=== PATIENT | female | born 1965 | race Caucasian/White ===

== ENCOUNTER 2016-07-10 11:34 | Inpatient (IN) | payer MEDICARE, BC ==
--- NOTE | ~2016-07-10 | CN ---
Consultation Report [facility] [address] [place]. [address] NAME: ALONSO MCFARLAND : 63 STATUS : ADM IN [facility]#: [id number] AGE: 51 ADM/REG DATE : 07/10/16 MR#: [id number] REPORT SERV DATE: 07/11/16 DICTATED BY: FRANCISCO SANON DATE: 07/11/16 REPORT STATUS : Draft TRANSCRIBED BY: MODCely DATE: 07/11/16 NEPHROLOGY CONSULT DATE OF CONSULTATION: 07/11/2016 REASON FOR CONSULT: Acute kidney injury. HISTORY OF PRESENT ILLNESS: Ms. Mcfarland is a 51-year-old white female with type 1 diabetes mellitus since the age of 6 that is complicated by neuropathy, retinopathy, and microalbuminuria. A1c is 10.2%. Creatinine in May was 1.1. She was admitted to [facility] on 07/07/2016 with a right foot wound, at which time, she was placed on vancomycin and Zosyn. Her creatinine has been 1 to 1.1 since admission. She was found to have an MRSA bacteremia during her workup. She was also found to have an occluded right SFA by ultrasound at [facility]. MRI showed no definite abscess and she is status post I and D of right foot on 07/07/2016. Yesterday, here at [facility], creatinine was 0.96. This morning, she was scheduled for arteriogram of the right leg for further evaluation of right SFA occlusion. Her creatinine was 1.74 and repeated at 2.11. Therefore, her arteriography was canceled. Interestingly, she has been on daily Mobic for approximately one year and is chronically on HANNY inhibitor. She has had diarrhea for the last several days as she has not been taking her usual home medications. PAST MEDICAL HISTORY: 1. Type 1 diabetes mellitus with retinopathy, neuropathy, microalbuminuria, and A1c 10.2% on HANNY inhibitor. 2. Rheumatoid arthritis with chronic pain and fibromyalgia. 3. Hyperlipidemia. 4. Recent SFA occlusion, right leg by ultrasound. 5. Recent MRSA bacteremia, on antibiotics. 6. Recent right foot wound. MEDICATIONS: Include Lipitor 20 mg h.s., Lovenox, Lexapro 10 mg daily, lisinopril 20 mg daily, Claritin, Protonix, Lyrica 200 mg daily, and vancomycin 750 mg q.12 hours. Prior to admission to [facility], she was also taking meloxicam 15 mg per day and Lantus 22 units daily. FAMILY HISTORY: No ESRD. SOCIAL HISTORY: Smokes one to two packs of cigarettes per day for several years. She is , lives in [place], [place], and disabled. Consultation Report [facility] [id number] [place]. [address] NAME: ALONSO MCFARLAND : 63 STATUS : ADM IN PAT#: [id number] AGE: 51 ADM/REG DATE : 07/10/16 MR#: [id number] REPORT SERV DATE: 07/11/16 DICTATED BY: FRANCISCO SANON DATE: 07/11/16 REPORT STATUS : Draft TRANSCRIBED BY: JOSHUA DATE: 07/11/16 REVIEW OF SYSTEMS: Please see HPI for pertinent details. Most recently, has had problems with the right foot wound prompting admission. She does have chronic neuropathy and retinopathy. PHYSICAL EXAMINATION: VITAL SIGNS: Temperature 97.9, pulse 86, respirations 20, blood pressure 189/81, and 95% saturation on 2 liters per nasal cannula. GENERAL: Middle-aged white female. Awake, alert, oriented, and cooperative with the exam. She is in no distress in her hospital bed. NEURO: Grossly nonfocal. HEENT: Sclerae are without icterus. Conjunctivae are not injected. Fundi are not examined. NECK: No JVD. LUNGS: Bilateral rhonchi without dyspnea or tachypnea on O2 per nasal cannula. HEART: Regular rate and rhythm without rub. ABDOMEN: Soft, nontender, and nondistended. Bowel sounds are present throughout without rebound, guarding, or peritoneal signs. EXTREMITIES: She has 1+ pitting bilateral lower extremity edema. Right foot is wrapped. Bandages are clean, dry, and intact. Wound not examined by me. No Sun catheter in place. No active gout appreciated. Mood and affect are appropriate. LABORATORY DATA: Sodium 134, potassium 4.1, bicarb 24, BUN 20, creatinine 2.1, GFR 26 mL/minute, calcium 8.4, and albumin 2.8. Vancomycin 11.2. White count 16.2, hemoglobin 11.8, platelets 294,000, and 4% eosinophils on the differential. INR 1.2. ASSESSMENT AND PLAN: Ms. Mcfarland is a 51-year-old white female with acute kidney injury in the setting of peripheral vascular disease with suspected right superficial femoral artery occlusion by ultrasound; leukocytosis; type 1 diabetes mellitus with neuropathy, retinopathy, right foot wound; microalbuminuria; methicillin-resistant Staphylococcus aureus bacteremia; chronic tobacco abuse; and hypertension. The reason for her acute kidney injury is undetermined, but likely multifactorial related to medication effect, acute tubular necrosis, interstitial nephritis, infection-related glomerulonephritis, renal artery stenosis ? Hold HANNY inhibitor and NSAIDs. Continue gentle IV fluid hydration. Check urinalysis, renal ultrasound, and Doppler renal artery ultrasound. Supportive care. Watch labs. No plans for renal biopsy at this time. Vancomycin level is within normal limits at this time. Hopefully, renal function will recover without the need for dialysis. We will follow closely with you. Family updated in room. All questions answered. We will follow closely. YOHAN/JOSHUA Francisco Consultation Report [address] [address] NAME: ALONSO MCFARLAND : 63 STATUS : ADM IN [facility]#: [id number] AGE: 51 ADM/REG DATE : 07/10/16 MR#: [id number] REPORT SERV DATE: 07/11/16 DICTATED BY: FRANCISCO SANON DATE: 07/11/16 REPORT STATUS : Draft TRANSCRIBED BY: JOSHUA DATE: 07/11/16 Rachel Sanon / [id number] CC: Dyllan Mckinley M.D.
--- NOTE | ~2016-07-10 | CN ---
Consultation Report [facility] [address] [place]. [address] NAME: ALONSO MARTÍNEZ : 63 STATUS : ADM IN [facility]#: [id number] AGE: 51 ADM/REG DATE : 07/10/16 MR#: [id number] REPORT SERV DATE: 07/12/16 DICTATED BY: ELY PRECIADO DATE: 07/11/16 REPORT STATUS : Draft TRANSCRIBED BY: MODL DATE: 07/11/16 INFECTIOUS DISEASE CONSULTATION DATE OF CONSULTATION: 07/11/2016 REASON FOR CONSULTATION: MRSA sepsis. HISTORY OF PRESENT ILLNESS: This is a 51-year-old female with past medical history notable for long-standing diabetes along with history of rheumatoid arthritis. The patient states about two weeks prior to her 07/07/2016 hospital admission at [facility], she noticed some discomfort in her right foot, particularly in the heel area, as if there was a "rock" in it. About a week prior to admission, she developed some fevers and then on the day prior to admission, she had spontaneous drainage from the right heel. For this reason, she was seen in the [facility] Emergency Department on 07/07/2016 when she had a fever of 103 and a white blood cell count of 19.4, and hemoglobin A1c of 10.2. Blood cultures were obtained and she was started on broad-spectrum antibiotics with vancomycin and Zosyn. She underwent evaluation by surgery and I and D of a right heel abscess was done. That operative note is reviewed and describes that once the overlying skin and callus had been removed, there was a large cavity in the foot that tunneled more deeply and higher up into the ankle area and there was a large amount of fibrinous exudate and gangrenous tissue that include subcutaneous fat, muscle, and fascia. This was debrided off the bone and the calcaneus and a large plug of tissue measuring 2 x 2 x 1 cm was removed from the cavity. The patient was felt to be in need of vascular surgery evaluation and was transferred here on 07/10/2016. Her blood cultures from admission there have returned positive for MRSA. At the time of her transfer, her renal function was normal for her with a creatinine of 0.96. Today, her creatinine has increased to 2.11. She also continues to have persistent leukocytosis with white blood cell count today of 16.2 thousand. She has been afebrile here except for one low-grade fever of 100. The patient has been evaluated by Nephrology and multiple possibilities are being considered for the etiology of her acute kidney injury. The patient has also been seen by Dr. Plata and an arteriogram was initially scheduled for today but canceled because of the worsening renal function. The patient had a transthoracic echocardiogram done at [facility] on 07/08/2016 which was felt to just shows some mild aortic valve sclerosis, normal LV function, and no evidence of cardiac vegetations. In addition, the patient had the MRI of the right ankle and forefoot on 07/08/2016, which showed no evidence of osteomyelitis. PAST MEDICAL HISTORY: As outlined above. In addition, she has a history of fibromyalgia and chronic pain syndrome, bilateral shoulder pain due to adhesive capsulitis, microscopic colitis, hyperlipidemia, pyelonephritis, and a melanoma on the right fifth toe. She has had hysterectomy, multiple right foot surgeries and cataract surgery. ALLERGIES: CYMBALTA CAUSES DIARRHEA AND VOMITING, UNCERTAIN REACTION TO CEPHALEXIN. PRESENT MEDICATIONS: In addition to vancomycin and Zosyn include Lyrica, Protonix, Claritin, Consultation Report [address] [address] NAME: ALONSO MARTÍNEZ : 63 STATUS : ADM IN [facility]#: [id number] AGE: 51 ADM/REG DATE : 07/10/16 MR#: [id number] REPORT SERV DATE: 07/12/16 DICTATED BY: ELY PRECIADO DATE: 07/11/16 REPORT STATUS : Draft TRANSCRIBED BY: MODCely DATE: 07/11/16 Prinivil, Lexapro, Lovenox, Lipitor. SOCIAL HISTORY: She has been a long-term smoker, but says she quit 10 days ago. Denies alcohol use. Lives with her . FAMILY HISTORY: Notable for hypertension and coronary artery disease. REVIEW OF SYSTEMS: As outlined above. In addition, no nausea, vomiting, diarrhea, chest pain, shortness of breath, or urinary tract symptoms. The patient states that around 1999, she was found to have positive hepatitis C antibody test but was seen by deputy k [address] in [place] and told that "you have the antibody but not the antigen" and told that she did not have chronic hepatitis C. PHYSICAL EXAMINATION: VITAL SIGNS: The patient weighs 84 kg. Presently afebrile. Pulse 86, blood pressure 189/81, respiratory rate 16. GENERAL: She is in no acute distress. HEAD AND NECK: Shows clear oral cavity. NECK: Supple. LUNGS: Clear to auscultation anteriorly. CARDIAC: Regular rate and rhythm. Normal S1, S2. I do not appreciate a murmur. No gallop or rub. ABDOMEN: Soft and nontender. Bowel sounds are present. EXTREMITIES: There is an open wound on the right lateral heel with surrounding soft tissue edema and very minimal warmth without significant drainage on the dressing. The patient has two peripheral IVs without signs of phlebitis. LABORATORY STUDIES: White blood cell count 16.2, hemoglobin 11.8, platelets 294. Creatinine as mentioned. Procalcitonin on admission here 0.21, albumin 2.8. Alkaline phosphatase 212. Other liver function tests normal. Blood cultures as mentioned. Positive both sets from [facility] on 07/07/2016 for MRSA. Renal ultrasound shows no evidence of obstruction. IMPRESSION: 1. MRSA sepsis on admission to [facility] on 07/07/2016, secondary to abscess of the right heel area, status post I and D, on 07/07/2016. MRI there was without evidence of underlying osteomyelitis. The patient also had a negative transthoracic echocardiogram. She does though have a persistent leukocytosis. 2. Acute kidney injury. Of questionable etiology. After consider the possible role of vancomycin either with interstitial nephritis or just nephrotoxicity from other mechanisms. PLAN: 1. We will repeat blood cultures. 2. Change vancomycin to daptomycin. Consultation Report [address] [address] NAME: ALONSO MARTÍNEZ : 63 STATUS : ADM IN [facility]#: [id number] AGE: 51 ADM/REG DATE : 07/10/16 MR#: [id number] REPORT SERV DATE: 07/12/16 DICTATED BY: ELY PRECIADO DATE: 07/11/16 REPORT STATUS : Draft TRANSCRIBED BY: JOSHUA DATE: 07/11/16 3. Discontinue Zosyn. 4. She will need a fairly prolonged course of IV antibiotics, with exact duration to be determined based on results of followup blood cultures and overall clinical course. MISSY/JOSHUA Ely Preciado M.D. / [id number] CC: Dyllan Mckinley M.D.
--- NOTE | ~2016-07-10 | DS ---
Discharge Summary [facility] [address] [facility] [place]. [address] NAME: ALONSO MARTÍNEZ : 63 STATUS : ADM IN [facility]#: [id number] AGE: 51 ADM/REG DATE : 07/10/16 MR#: [id number] REPORT SERV DATE: 07/28/16 DICTATED BY: JULIAN PINO DATE: 07/28/16 REPORT STATUS : Draft TRANSCRIBED BY: MODL DATE: 07/28/16 ADMISSION DATE: 07/10/2016 DISCHARGE DATE: 07/28/2016 DISCHARGE DIAGNOSES: 1. Acute renal failure most likely due to use of Zosyn versus vancomycin or hypotensive acute tubular necrosis. Currently resolved. 2. Methicillin-resistant Staphylococcus aureus bacteremia and sepsis, currently resolved. 3. Peripheral arterial disease with PTCA of the distal right superficial femoral artery. 4. Right heel ulcer, diabetic in nature with cellulitis, currently improved. 5. Type 2 diabetes mellitus uncontrolled with a hemoglobin A1c of 10.2. 6. Tobacco dependency. 7. Hyperlipidemia. 8. Anxiety disorder. 9. Peripheral neuropathy due to type 2 diabetes mellitus. 10.History of microscopic colitis, currently stable. 11.Chronic pain syndrome. 12.Fibromyalgia. 13.History of rheumatoid arthritis. CONSULTANTS DURING THIS HOSPITALIZATION: 1. Fermin Plata M.D. of Vascular Surgery. 2. Slick Larsen M.D. of Nephrology. 3. Conrado Preciado M.D. of Infectious Disease. 4. Juan A Black DPM of Podiatry. INVASIVE PROCEDURES DONE DURING THIS HOSPITALIZATION: Lower extremity arteriogram with runoff and PTCA of the right superficial femoral artery. BRIEF HISTORY OF PRESENT ILLNESS: The patient is a 51-year-old female transferred from [facility] followed by Dr. Katrin Parmar in [place] for type 1 diabetes presented to [facility] with a right heel abscess, right foot gangrene, and uncontrolled type 2 diabetes mellitus with MRSA bacteremia. For a detailed history and physical exam, please see note dictated by Dr. Dyllan Mckinley on 07/10/2016. HOSPITAL COURSE: After being admitted to the hospital, this patient was cared for by the undersigned. Please refer to my interim summary dictated on 07/17/2016. Then, this patient was followed by Dr. Bjorn Zuniga. Please refer to interim summary dictated by Dr. Zuniga on 07/25/2016. Once again, I took over this patient's care on 07/26/2016. This patient was doing well. Her renal function had resolved. We needed to finish a full course of daptomycin. Dr. Preciado recommended that she will complete that on 07/28/2016. She received her last dose of daptomycin this morning. She is now fully ambulatory. She is not requiring any oxygen. She has been released by the personal lines sales executive as there was no further intervention to be done for her heel, and she will have an outpatient followup. Dr. Plata has recommended that she will follow up with him in four to six weeks as well. This patient remained stable otherwise. Once again, her diabetes still is somewhat uncontrolled because Discharge Summary [address] [place]. [address] NAME: ALONSO MARTÍNEZ : 63 STATUS : ADM IN [facility]#: [id number] AGE: 51 ADM/REG DATE : 07/10/16 MR#: [id number] REPORT SERV DATE: 07/28/16 DICTATED BY: JULIAN PINO DATE: 07/28/16 REPORT STATUS : Draft TRANSCRIBED BY: JOSHUA DATE: 07/28/16 she manages that on her own and would not let us intervene except with some suggestions. I have recommended that she follow up with Dr. Katrin Parmar for that. DISCHARGE DISPOSITION: Home. DISCHARGE ACTIVITY: As tolerated. DISCHARGE DIET: 1800-calorie [place] [employer] diet. DISCHARGE MEDICATIONS: Norvasc 5 mg p.o. once daily; Coreg 6.25 mg once daily; Plavix 75 mg once daily; aspirin 81 mg once daily; atorvastatin 40 mg once at bedtime; Lexapro 20 mg once daily; [place] 10/325 one tablet p.o. 3 times daily; Prilosec 40 mg once daily; collagenase ointment to the right heel; Lyrica 100 mg twice daily; Humalog sliding scale; Toujeo SoloStar 22 units subcu daily; milk thistle 100 mg daily; Claritin 10 mg once daily; Percocet 5/325 one tablet every 4 hours p.r.n. for pain. DISCHARGE FOLLOWUP: With Dr. Fermin Plata in four to six weeks with Podiatry in the outpatient setting. 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 With patient's hydramatic specialist, Dr. Katrin Parmar in two to three weeks. More than 35 minutes spent planning this patient's discharge, reconciling medications, writing prescriptions, discussing hospital care, and followup with the patient and documenting this discharge. SV/MODL Julian Pino M.D. / [id number] CC: Rachel Sears M.D.
--- NOTE | ~2016-07-10 | HP ---
History And Physical [id number] [facility] [place]. [address] NAME: ALONSO MCFARLAND : 63 STATUS : ADM IN PAT#: [id number] AGE: 51 ADM/REG DATE : 07/10/16 MR#: [id number] REPORT SERV DATE: 07/10/16 DICTATED BY: DATE: REPORT STATUS : Draft TRANSCRIBED BY: MODL DATE: 07/10/16 DATE OF ADMISSION: 07/10/2016 The patient is admitted to the [facility] Hospitalist Service, attending Dr. Dyllan Mckinley. CHIEF COMPLAINT: Transfer from [facility] for higher level of care. HISTORY OF PRESENT ILLNESS: Ms. Mcfarland is a 51-year-old white female with a long-standing history of type 1 diabetes, followed by Dr. Katrin Parmar at [facility]. The patient reports recently poor diabetes control with hemoglobin A1c value in the outpatient setting of 8.0. In the week preceding admission, she was developing fever up to 103 degrees as well as some confusion and delirium. She also had right heel pain. She was ambulating on the foot the day prior to admission when the heel spontaneously opened and "pus" squirt out across the floor. She went to the emergency department at [facility] on 07/07/2016 where she was admitted to the hospitalist service for evidence of a right heel abscess, right foot gangrene, and uncontrolled diabetes with a hemoglobin A1c of 10.2. She was placed on antibiotics of vancomycin and Zosyn. Subsequent blood cultures have grown MRSA. They do not have the ability to place a PICC line for long-term antibiotics at [facility]. Also, the patient underwent a bedside incision and debridement on 07/07/2016 by General Surgery, who recommended an arterial ultrasound be performed for concerns of peripheral arterial disease. This was performed on 07/08/2016 demonstrating no flow in the distal right SFA, compatible with occlusion. General Surgery's recommendation was transferred to [facility] for vascular surgery evaluation, which cannot be completed in [facility]. The patient had an MRI prior to transfer showing soft tissue swelling over the head of the 5th metatarsal, but no definite osteomyelitis of the foot or calcaneus. The patient currently reports that her pain is controlled, her drainage from the heel has decreased. She denies any fevers or chills since hospitalization at [facility]. She reports that she has been managing her blood sugars at [facility] and that her sugars are ranging between 90 and 300, which is around normal for her. She denies any other systemic complaints such as delirium, chest pain, shortness of breath, abdominal pain, or dysuria. REVIEW OF SYSTEMS: A full 14-point review of systems is negative except as dictated in the history of present illness. The patient does not currently have a primary care provider. She sees Dr. Katrin Parmar of Endocrinology, Dr. Ramsey of Podiatry in [place], [place], Dr. Dinero for pain management, and Dr. Masoud Sherwood for GI issues. PAST MEDICAL HISTORY: Includes 1. Insulin-dependent diabetes mellitus type 1 with associated peripheral neuropathy. No known retinopathy or nephropathy. 2. Rheumatoid arthritis. History And Physical [address] [address] NAME: ALONSO MCFARLAND : 63 STATUS : ADM IN [facility]#: [id number] AGE: 51 ADM/REG DATE : 07/10/16 MR#: [id number] REPORT SERV DATE: 07/10/16 DICTATED BY: DATE: REPORT STATUS : Draft TRANSCRIBED BY: MODL DATE: 07/10/16 3. Fibromyalgia. 4. Chronic pain syndrome - narcotic dependence. 5. Bilateral shoulder pain due to adhesive capsulitis and other arthritic issues. 6. Microscopic colitis. 7. Hyperlipidemia. 8. History of pyelonephritis. 9. History of melanoma of the right 5th toe. PAST SURGICAL HISTORY: Includes 1. A complete hysterectomy, multiple surgeries on the right foot including resection of the right 5th metatarsal and subsequent surgery for a bone spur. 2. Cataract surgery. ALLERGIES: CYMBALTA CAUSES VIOLENT VOMITING AND DIARRHEA. THE PATIENT ALSO HAS KEFLEX LISTED AN ALLERGY, BUT SHE IS UNAWARE OF THE REACTION. MEDICATION LIST: Home med list and transfer MAR were reviewed pertinent for: 1. Lipitor 20 mg p.o. q.h.s. 2. Claritin 10 mg p.o. daily. 3. Vicodin 10/325 mg p.o. every 4 hours as needed. 4. Lexapro 10 mg p.o. daily. 5. Lisinopril 20 mg p.o. daily. 6. Lyrica 200 mg p.o. daily. 7. Prilosec 40 mg p.o. daily. 8. Xanax 1 mg p.o. as needed for anxiety. 9. Vancomycin 1 g q.12 hours - started on 07/07/2016. 10.Zosyn 3.375 g IV q.8 hours - started on 07/07/2016. 11.Toujeo 30 units subcu daily. 12.Humalog sliding scale. SOCIAL HISTORY: The patient is disabled and , but does not have any children. She smokes heavily between two and three packs per day on average, but recently has been cutting back to one pack per day and has not had any tobacco since her 07/07/2016 admission. She denies use of any alcohol or illicit substances. FAMILY HISTORY: Pertinent for hypertension and coronary artery disease in her mother who related to complications of stomach cancer. Her father related to an iatrogenic lung injury. PHYSICAL EXAMINATION: VITAL SIGNS: Blood pressure 118/59, temperature 98.6, pulse 72, respirations 14, and oxygen saturations 94% on room air. GENERAL: This is a well-developed, well-nourished white female, looking older than her stated age, in no acute distress. Alert and oriented in three dimensions. HEENT: Normocephalic, atraumatic. Pupils are equally round and reactive to light. No scleral icterus. No nasal drainage. Oropharynx is moist and pink. No posterior pharyngeal erythema nor exudate. History And Physical [address] [address] NAME: ALONSO MCFARLAND : 63 STATUS : ADM IN [facility]#: [id number] AGE: 51 ADM/REG DATE : 07/10/16 MR#: [id number] REPORT SERV DATE: 07/10/16 DICTATED BY: DATE: REPORT STATUS : Draft TRANSCRIBED BY: MODL DATE: 07/10/16 NECK: Supple. No jugular venous distention. No lymphadenopathy. No bruits. No thyromegaly. CARDIOVASCULAR: Regular rate and rhythm. No murmurs, rubs or gallops. LUNGS: Clear to auscultation bilaterally. No wheezes, crackles, no rhonchi. ABDOMEN: Soft, nontender, and nondistended with normoactive bowel sounds in four quadrants and no hepatosplenomegaly. EXTREMITIES: No cyanosis or clubbing of bilateral lower extremities. There is dusky discoloration of the toes on the right foot as well as evidence of prior surgical correction of the right pinky toe. There is a 1.5 cm clean based ulceration of the right heel with serosanguineous nonodorous drainage. There is trace edema around the right lateral malleolus and ankle, otherwise no edema. Faint dorsalis pedis pulses palpable bilaterally. SKIN: Normal skin turgor with no rash or skin breakdown aside from right foot findings as described above. NEUROLOGIC: Cranial nerves 2 through 12 were tested and are intact. Deep tendon reflexes are 2+ bilateral brachioradialis and patellar tendons. Sensation is diminished in bilateral lower extremities. IMAGIN. Portable chest x-ray 07/07/2016July shows no acute process, borderline cardiomegaly. 2. Arterial Doppler ultrasound bilateral - 07/08/2016 showing abnormal lower extremity arterial ultrasound with no flow noted in the distal right SFA compatible with occlusion. Reconstitution with flow in the popliteal is noted. Monophasic waveform throughout the remaining deep arterial system. Inflow disease of the BRAZING MACHINE OPERATOR AUTOMATIC with elevated flow velocity of the left BRA[employer]ING [employer]ACHINE [employer]PER[employer], diminished ankle brachial indices particularly on the right ankle. 3. Echocardiogram on 07/08/2016 shows normal left ventricular size and systolic function with mild aortic valve stenosis and mild left ventricular hypertrophy. No evidence of valvular vegetations. 4. Three views of the right foot on 07/07/2016 shows soft tissue swelling overlying the head of the 5th metatarsal. Probable posttraumatic or postoperative changes of the distal head of the proximal phalanx 1st through 4th digits with absence of the proximal phalanx of the 5th digit. Degenerative changes. Probable older avulsion fracture fragment adjacent to the proximal medial aspect of the distal phalanx of the 1st digit. Fracture of the calcaneus with apparent sclerotic margins may be subacute. Prominent spurring and dystrophic bone posterior to the calcaneus stable from 2016 imaging. 5. MRI of the right ankle without contrast on 07/08/2016 shows ulceration over the heel of the foot, no drainable abscess. No definite osteomyelitis of the calcaneus. Posttraumatic sequelae all appear old. Large bone fragment posterior to the calcaneus with attachment of the Achilles tendon. Small joint effusion. Reactive marrow changes versus mild marrow edema. PERTINENT LABORATORY DATA: Blood cultures, 2/2 positive for MRSA. Initial white count 19.4, down trending to 16.9. Creatinine 1.1. IMPRESSION: 1. Right heel ulcer-diabetic, with cellulitis and methicillin-resistant staphylococcus aureus bacteremia. Rule out calcaneal osteomyelitis. History And Physical [address] [address] NAME: ALONSO MCFARLAND : 63 STATUS : ADM IN [facility]#: [id number] AGE: 51 ADM/REG DATE : 07/10/16 MR#: [id number] REPORT SERV DATE: 07/10/16 DICTATED BY: DATE: REPORT STATUS : Draft TRANSCRIBED BY: MODL DATE: 07/10/16 2. Distal right SFA occlusion. 3. Uncontrolled insulin-dependent diabetes mellitus type 1 with hemoglobin A1c 10.2. 4. Tobacco dependence and history of heavy tobacco abuse. 5. Additional medical history as outlined above. PLAN: 1. Inpatient admission to attending Dr. Dyllan Mckinley. 2. Continue vancomycin-discontinue Zosyn for current culture data. 3. Case was discussed with Dr. Fermin Plata, who will see the patient today. The patient is likely to require arteriogram plus or minus stent/vascular procedure to the right lower extremity to correct the SFA occlusion and improved perfusion and healing to the right lower extremity. 4. The patient may require General Surgery consultation for additional debridement of the heel-we will hold off on this at present, pending further vascular evaluation as the wound appears clean currently and there is no definitive evidence of calcaneal osteomyelitis by MRI at the outside facility. 5. Blood glucose control-the patient states she prefers to manage her own insulin here. 6. The patient was counseled on the ongoing need for complete tobacco cessation. Additional recommendations pending results of above. WILLOW/JOSHUA Dyllan Mckinley M.D. / [id number] CC: Dyllan Mckinley M.D. UNKNOWN
--- NOTE | ~2016-07-10 | CN ---
Consultation Report [facility] [address] [place]. [address] NAME: ALONSO MARTÍNEZ : 63 STATUS : ADM IN [facility]#: [id number] AGE: 51 ADM/REG DATE : 07/10/16 MR#: [id number] REPORT SERV DATE: 07/11/16 DICTATED BY: FERMIN PLATA DATE: 07/10/16 REPORT STATUS : Draft TRANSCRIBED BY: JOSHUA DATE: 07/10/16 CONSULT NOTE DATE OF CONSULTATION: 07/10/2016 REASON FOR CONSULTATION: Evaluation for atherosclerosis of bilateral lower extremities with right heel ulceration. INDEPENDENT CROP CONSULTANT: Dr. Ramsey. BRIEF HISTORY: The patient is a 51-year-old female with past medical history significant for type 1 diabetes, rheumatoid arthritis, fibromyalgia, and chronic pain who has had her foot care with Dr. Ramsey for many years now. She actually had a melanoma removed from her toe and subsequent infection that necessitated partial toe amputation. She came in to the hospital over at [facility] for fevers and chills. She was noted to have purulent drainage from her heel. She had drainage of an abscess by Dr. Shmuel Ross and came in here for vascular evaluation, as she had an abnormal noninvasive study. The patient complains of right heel pain. Otherwise, she says that she is not in a very good mood. She is not happy to be here. PAST MEDICAL HISTORY: Diabetes, rheumatoid arthritis, fibromyalgia, chronic pain, melanoma, and hyperlipidemia. PAST SURGICAL HISTORY: Includes foot surgeries, hysterectomy, cataract surgery, and some type of hormone replacement implants. SOCIAL HISTORY: She smokes. She denies any alcohol or drug abuse. She is . ALLERGIES: LISTED CYMBALTA, WHICH CAUSES AN UPSET STOMACH. MEDICATIONS: Documented on the chart and were reviewed. She is on an aspirin and a statin but no anticoagulants. FAMILY HISTORY: Significant for heart disease, hypertension, and cancers. REVIEW OF SYSTEMS: A complete review of systems was performed and is negative with the exception of the aforementioned findings. PHYSICAL EXAMINATION: VITAL SIGNS: Documented on the chart and were reviewed. GENERAL: The patient is awake, alert, and oriented, in no apparent distress. HEENT: Her head and neck examination is benign without any carotid bruits. HEART: Regular rate and rhythm. LUNGS: Clear. Consultation Report [facility] [address] [place]. [address] NAME: ALONSO MARTÍNEZ : 63 STATUS : ADM IN PAT#: [id number] AGE: 51 ADM/REG DATE : 07/10/16 MR#: [id number] REPORT SERV DATE: 07/11/16 DICTATED BY: FERMIN PLATA DATE: 07/10/16 REPORT STATUS : Draft TRANSCRIBED BY: JOSHUA DATE: 07/10/16 ABDOMEN: Soft, nontender, nondistended with a nonaneurysmal aorta. EXTREMITIES: She has a normal complement of upper extremity pulses without any significant edema or ischemic ulcerations. I think I can feel femoral pulses, although they are a little weak. I do not appreciate popliteal or pedal pulses. She has somewhat atrophic feet. She has a right heel ulcer that appears to be clean but tunnels down to what appears to be the bone. NEUROLOGICAL: Grossly nonfocal. MUSCULOSKELETAL: Otherwise benign. LABORATORY DATA: Her laboratory investigations revealed leukocytosis over at [facility]. It looked like it was decreasing. She had a noninvasive study that showed aortoiliac disease as well as femoropopliteal disease. Her ankle-brachial indices, however, are almost normal. There is no mention of noncompressibility of the vessels. ASSESSMENT AND PLAN: It looks like this lady has atherosclerosis of her aortoiliac system as well as her lower extremities with a right heel ulcer but no other pain other than her wound. I talked to her about the risks, benefits, and alternatives of angiography with intervention. She agrees to proceed. She understands the importance of smoking cessation. She verbally committed to doing this. She needs to work on blood sugar control with her squeegeer and former. We note that her last hemoglobin A1c was 10. Lastly, she needs to continue her aspirin and statin. She understands the high risk of limb loss with heel ulceration with infection. She is agreeable to proceed with intervention. I will get a store hand involved to help manage her right heel wound, as Dr. Ramsey does not have privileges at [facility]. HEALTH NAVIGATOR: Dr. Parmar. PAIN MANAGEMENT: Dr. Dinero. ANITA/JOSHUA Fermin Plata M.D. / [id number] CC: Rachel Cabral M.D. Bill Vuong, DPM Asma Khan, MD Mary Katherine McDonald, M.D.
--- NOTE | ~2016-07-10 | OP ---
Record Of Operation [facility] [address] [place]. [address] NAME: ALONSO MARTÍNEZ : 63 STATUS : ADM IN PAT#: [id number] AGE: 51 ADM/REG DATE : 07/10/16 MR#: [id number] REPORT SERV DATE: 07/26/16 DICTATED BY: FERMIN PLATA DATE: 07/25/16 REPORT STATUS : Draft TRANSCRIBED BY: JOSHUA DATE: 07/25/16 DATE OF PROCEDURE: 07/25/2016 PREOPERATIVE DIAGNOSIS: Jayda V chronic right lower extremity ischemia. POSTOPERATIVE DIAGNOSIS: Jayda V chronic right lower extremity ischemia. PROCEDURES: 1. Aortogram with right lower extremity runoff. 2. Percutaneous angioplasty of the right SFA and above knee popliteal artery with a 5-mm balloon. WATER REGULATOR AND VALVE REPAIRER: None. ANESTHESIA: MAC plus local. INDICATIONS: The patient is a 51-year-old female with a history of diabetes and tobacco abuse who came in with a nonhealing right heel wound and was noted to have an abnormal pulse examination. Duplex confirmed atherosclerosis of her right lower extremity. She was originally scheduled for a right lower extremity arteriogram with intervention, but she developed acute kidney injury. Now, her renal function has improved. Thus, she was consented for intervention. DESCRIPTION OF PROCEDURE: After informed consent was obtained, the patient was taken to the operating room and placed in the supine position on the operating table. Monitored anesthesia was administered. Her groins and right lower extremity were prepped and draped in the usual sterile fashion. Ultrasound-guided access was obtained of the left common femoral artery using a micropuncture technique. An oblique angiogram confirmed puncture within the anterior common femoral artery. I passed a wire up into the aorta and placed a 5 Japanese sheath. The catheter was placed into the pararenal aorta. An aortogram demonstrated no hemodynamically significant aortoiliac disease. I selected out the right external iliac artery and obtained sequential imaging down the right lower extremity. This demonstrated no hemodynamically significant right common femoral, deep femoral, or superficial femoral artery disease proximally. There was a distal SFA occlusion with reconstitution of the above knee popliteal artery. There were three-vessel runoff distally. I systemically heparinized and placed a 6-Japanese sheath up and over the aortic bifurcation into the right SFA. I then crossed the SFA occlusion. I confirmed my presence in the true lumen distally. I then angioplastied the right SFA with a 5-mm balloon. Imaging obtained afterwards showed no embolization and an excellent result. Thus, I withdrew my wire, catheter, and sheath and used a ProGlide device to close the arteriotomy. The patient tolerated the procedure well without any intraprocedural complications noted. ANITA/JOSHUA Record Of [address] [address] NAME: ALONSO MARTÍNEZ : 63 STATUS : ADM IN PAT#: [id number] AGE: 51 ADM/REG DATE : 07/10/16 MR#: [id number] REPORT SERV DATE: 07/26/16 DICTATED BY: FERMIN PLATA DATE: 07/25/16 REPORT STATUS : Draft TRANSCRIBED BY: JOSHUA DATE: 07/25/16 Fermin Plata M.D. / [id number] CC: Rachel Chaudhari M.D.
--- NOTE | ~2016-07-10 | IDS ---
Interim Discharge Summary [facility] [address] [place]. [address] NAME: ALONSO MARTÍNEZ : 63 STATUS : ADM IN PAT#: [id number] AGE: 51 ADM/REG DATE : 07/10/16 MR#: [id number] REPORT SERV DATE: 07/25/16 DICTATED BY: RABIA CLARK DATE: 07/25/16 REPORT STATUS : Draft TRANSCRIBED BY: MODL DATE: 07/25/16 ADMISSION DATE: 07/10/2016 DISCHARGE DATE: CURRENT HOSPITAL DIAGNOSES: 1. Acute renal failure secondary to antibiotics, resolved. 2. Methicillin-resistant Staphylococcus aureus bacteremia and sepsis, resolving. 3. Peripheral arterial disease, status post aortogram with percutaneous angioplasty to right superficial femoral artery. 4. Right heel diabetic ulcer with cellulitis. 5. Diabetes mellitus. 6. Tobacco dependence. 7. Anxiety disorder. CONSULTATIONS: As listed to previous interim summary. PROCEDURES: As listed to previous interim summary with the addition of the vascular intervention. CURRENT PHYSICAL FINDINGS AND HPI: Please see initial dictated H and P by Dr. Mckinley on the 07/10/2016 as well as interim summary by Dr. Pino on the 07/17/2016. I assumed the patient's care on the 07/19/2016 and will dictate from that point. Basically, the patient's renal function was slowly improving. She was awaiting vascular procedure for revascularization for Podiatry to correct her wound. Renal was following her for acute kidney insufficiency, and the patient was adjusting her home insulin. On 07/19/2016, the patient was not taking her Levemir, she was using her home medications, so it was discontinued. Her renal function was improving. No changes on the 07/20/2016. On the 07/21/2016, renal function continued to improve. Daptomycin dose was changed to 500 q.24 hours by ID and CPKs were followed. On the 07/22/2016, as her renal function improved, her DVT prophylaxis with Lovenox was increased. On the 07/23/2016, it was hoped her renal function would improve and she was made n.p.o., however, she was still above the 1.5, recommendations to undergo vascular procedure. Her Toujeo, however, was increased to 24 units. She requested her Xanax be changed to Valium and this was done on 05/25/2016. On the 07/24/2016, her renal function improved. She was scheduled for an arteriogram on Monday with IV fluids to begin prior. Podiatry also continued to follow and was awaiting her revascularization for further wound treatment. The patient is status post procedure today without problems. Blood sugars have been somewhat fluctuant, but overall reasonably controlled. CURRENT DISPOSITION: Final ID recommendations and final procedure recommendations from Podiatry for any intervention on her heel wound. TLF/MODL Interim Discharge Summary [address] [place]. [address] NAME: ALONSO MARTÍNEZ : 63 STATUS : ADM IN [facility]#: [id number] AGE: 51 ADM/REG DATE : 07/10/16 MR#: [id number] REPORT SERV DATE: 07/25/16 DICTATED BY: RABIA CLARK DATE: 07/25/16 REPORT STATUS : Draft TRANSCRIBED BY: JOSHUA DATE: 07/25/16 Rabia Clark M.D. / [id number] CC: Rachel Chaudhari M.D.
--- NOTE | ~2016-07-10 | IDS ---
Interim Discharge Summary [facility] [address] [place]. [address] NAME: ALONSO MARTÍNEZ : 63 STATUS : ADM IN [facility]#: [id number] AGE: 51 ADM/REG DATE : 07/10/16 MR#: [id number] REPORT SERV DATE: 07/17/16 DICTATED BY: JULIAN PINO DATE: 07/17/16 REPORT STATUS : Draft TRANSCRIBED BY: MODCely DATE: 07/17/16 ADMISSION DATE: 07/10/2016 DISCHARGE DATE: 07/17/2016 Hospital course covered in this interim summary is from 07/10/2016 through 07/18/2016. INTERIM DIAGNOSES: 1. Acute renal failure most likely due to use of Zosyn versus vancomycin versus hypotensive ATN. Currently improving. Nephrology is following. 2. MRSA bacteremia and sepsis. Currently improving on IV daptomycin. 3. Peripheral arterial disease with no flow noted in the distal right SFA compatible with occlusion. 4. Right heel diabetic ulcer with cellulitis. 5. Uncontrolled insulin-dependent diabetes type 1 with a hemoglobin A1c of 10.2. 6. Tobacco dependence. 7. Hyperlipidemia. 8. Anxiety disorder. 9. Peripheral neuropathy due to type 2 diabetes mellitus. 10.History of microscopic colitis. 11.History of pyelonephritis. 12.Chronic pain syndrome, on narcotics. 13.Fibromyalgia. 14.History of rheumatoid arthritis. CONSULTANTS DURING THIS HOSPITALIZATION: 1. Fermin Plata M.D., of Vascular Surgery. 2. Slick Larsen M.D., of Nephrology. 3. Conrado Preciado M.D., of Infectious Disease. 4. Podiatry. INVASIVE PROCEDURES DONE DURING THIS COURSE OF HOSPITALIZATION: None so far. BRIEF HISTORY OF PRESENT ILLNESS: The patient is a 51-year-old patient transferred from [facility] followed by Dr. Katrin Parmar at [place] for her type 1 diabetes, presented to [facility] with right heel abscess, right foot gangrene, and uncontrolled type 2 diabetes mellitus with MRSA bacteremia. For detailed history and physical exam, please see note dictated by Dr. Dyllan Mckinley on 07/10/2016. HOSPITAL COURSE: After being admitted to the hospital, this patient was seen by multiple consultants and evaluation was performed. She has severe peripheral arterial disease. So Podiatry recommended that her arterial disease needs to be addressed prior to any further podiatric intervention. When Dr. Plata saw the patient in consultation, this patient's creatinine was on the rise and Dr. Plata recommended that we await until her kidney function returns to normal. Dr. Larsen has seen the patient and I have had discussion with Dr. Larsen regarding this patient's kidney function on a daily basis. It is mine and his assessment that this patient probably had injury to her kidney either due to use of Interim Discharge Summary [address] [place]. [address] NAME: ALONSO MARTÍNEZ : 63 STATUS : ADM IN PAT#: [id number] AGE: 51 ADM/REG DATE : 07/10/16 MR#: [id number] REPORT SERV DATE: 07/17/16 DICTATED BY: JULIAN PINO DATE: 07/17/16 REPORT STATUS : Draft TRANSCRIBED BY: MODL DATE: 07/17/16 antibiotics causing an AIN or hypotensive ATN. At this time, this patient's kidney function is improving. She peaked her creatinine at about 4.9, and today her creatinine is 3.6, and she feels better. We continued to give her diuretics on a daily basis as needed under the care of Nephrology. Dr. Preciado discontinued Zosyn and vancomycin and patient remains on daptomycin since 07/11. Vascular Surgery and Podiatry has not followed the patient during this course of hospitalization after initial recommendation. PLAN: Our plan is that as soon as patient's creatinine improves to 1.5 or below, she could have vascular intervention. So, Dr. Plata will need to be notified and reconsulted at that time. Once her vascular issues are addressed, her heel debridement and drainage can be done by Podiatry. DISPOSITION: Pending above. ANDREW/GERIL Julian Pino M.D. / [id number] CC: Rachel Sears M.D.
[~2016-07-10 11:34] MED LIST: ADVIL PO; AIRBORNE PO; ASAB PO; BUTRANS PATCH; BUTRANS1 EAC1 TOP; CIP5 PO; GUMMY VITAMINS; HUMALOGPEN SC; LANTUS SC; LEXAPRO10 PO; LIPITOR40 PO; LOP25 PO; LYRICA100 MG PO; MAG-DELAY PO; METANX PO; MILK THISTLE PO; MULTIVITAMI1 PO; NICODERM C21 MG/241 TOP; NORCO1 TA2 PO; OS500+D PO; POT GLUCONAT550 M1 PO; POWER C PO; PRAVACHOL40 MG PO; PRILOSEC40 MG PO; PROVHFA INH; TOUJEO SC; X5 PO; ZOFRAN8 PO; [UNRECOGNIZED DRUG - CODE]
[2016-07-10 15:52] LABS: BASOPHILS 0.4 %; BASOPHILS ABSOLUTE 0.06 10/3/uL (0.0-0.16); EOSINOPHILS 2.9 %; EOSINOPHILS ABSOLUTE 0.44 10/3/uL (0.0-0.53); HEMATOCRIT 39.9 % (36.0-48.0); HEMOGLOBIN 12.7 g/dL (12.0-16.0); IMMATURE GRANULOCYTES 0.4 %; IMMATURE GRANULOCYTES ABSOLUTE 0.06 10/3/uL (0.0-0.11); LYMPHOCYTES ABSOLUTE 3.38 10/3/uL (0.67-4.30); MEAN CORPUS HGB CONC 31.8 g/dL (32.0-36.0); MEAN CORPUSCULAR HEMOGLOB 25.9 pg (26.0-34.0); MEAN CORPUSCULAR VOLUME 81.3 fL (80-100); MEAN PLATELET VOLUME 10.6 fL (9.2-13.0); MONOCYTES 9.3 %; MONOCYTES ABSOLUTE 1.42 10/3/uL (0.21-1.20); NEUTROPHILS ABSOLUTE 9.99 10/3/uL (2.02-8.40); RBC DISTRIBUTION WIDTH 16.1 % (12.0-16.0); RED CELL COUNT 4.91 10/6/uL (4.0-5.6); WHITE BLOOD CELLS 15.4 10/3/uL (4.5-10.5)
[2016-07-10 15:55] LABS: MANUAL DIFF NO %; PLATELET COUNT 273 10/3/uL (150-400)
[2016-07-10 15:58] LABS: INTERNATIONAL NORMAL RATI 1.2 UNITS (-); PARTIAL THROMBO TIME 36.6 SEC (22.5-37.2)
[2016-07-10] MEDS ORDERED: ASAB PO (16:03)
[2016-07-10] MEDS ORDERED: PRILOSEC40 MG PO (16:03)
[2016-07-10] MEDS ORDERED: HUMALOG SC (16:04)
[2016-07-10] MEDS ORDERED: MOTRIN IB200 MG PO (16:04)
[2016-07-10] MEDS ORDERED: TOUJEO SC (16:04)
[2016-07-10] MEDS ORDERED: PRIN5 PO (16:05)
[2016-07-10] MEDS ORDERED: MILK THISTLE PO (16:05)
[2016-07-10] MEDS ORDERED: LYRICA100 MG PO (16:05)
[2016-07-10] MEDS ORDERED: LEXAPRO20 PO (16:05)
[2016-07-10] MEDS ORDERED: MOBIC15 MG PO (16:05)
[2016-07-10] MEDS ORDERED: LIPITOR40 PO (16:06)
[2016-07-10] MEDS ORDERED: NORCO1 TAB PO (16:07)
[2016-07-10] MEDS ORDERED: CLARIT10 PO (16:07)
[2016-07-10 16:11] LABS: A/G RATIO 0.5 (0.7-1.9); ALBUMIN 2.8 G/DL (3.5-5.0); CALCIUM, SERUM 8.9 MG/DL (8.5-10.4); CHLORIDE, SERUM 102 MMOL/L (96-112); CO2 (CARBON DIOXIDE) 29 MMOL/L (24-34); CREATININE 0.96 MG/DL (0.55-1.02); GFR AFRICAN AMERICAN 79 ML/MIN (>=60); GFR NON AFRICAN AMERICAN 68 ML/MIN (>=60); GLOBULIN 5.4 G/DL (2.5-4.1); POTASSIUM, SERUM 3.6 MMOL/L (3.5-5.3); SGOT(AST) 28 U/L (5-40); SGPT(ALT) 35 U/L (5-65); SODIUM, SERUM 140 MMOL/L (135-148); TOTAL PROTEIN 8.2 G/DL (6.0-8.5)
[2016-07-10 16:12] LABS: ALKALINE PHOSPHATASE 212 U/L (45-117); BUN (BLOOD UREA NITROGEN) 15 MG/DL (6-23); GLUCOSE, SERUM 290 MG/DL (60-99); TOTAL BILIRUBIN 0.8 MG/DL (0-1.2)
[2016-07-10 16:27] LABS: PROCALCITONIN 0.21 ng/mL (<0.5)
[2016-07-11 05:33] LABS: BASOPHILS 0.6 %; BASOPHILS ABSOLUTE 0.09 10/3/uL (0.0-0.16); EOSINOPHILS 4.5 %; EOSINOPHILS ABSOLUTE 0.73 10/3/uL (0.0-0.53); HEMATOCRIT 36.4 % (36.0-48.0); HEMOGLOBIN 11.8 g/dL (12.0-16.0); IMMATURE GRANULOCYTES 0.5 %; IMMATURE GRANULOCYTES ABSOLUTE 0.08 10/3/uL (0.0-0.11); LYMPHOCYTES 24.3 %; LYMPHOCYTES ABSOLUTE 3.93 10/3/uL (0.67-4.30); MEAN CORPUS HGB CONC 32.4 g/dL (32.0-36.0); MEAN CORPUSCULAR VOLUME 80.4 fL (80-100); MEAN PLATELET VOLUME 10.6 fL (9.2-13.0); MONOCYTES 10.3 %; MONOCYTES ABSOLUTE 1.66 10/3/uL (0.21-1.20); NEUTROPHILS 59.8 %; NEUTROPHILS ABSOLUTE 9.66 10/3/uL (2.02-8.40); PLATELET COUNT 294 10/3/uL (150-400); RED CELL COUNT 4.53 10/6/uL (4.0-5.6); WHITE BLOOD CELLS 16.2 10/3/uL (4.5-10.5)
[2016-07-11 05:38] LABS: BUN (BLOOD UREA NITROGEN) 17 MG/DL (6-23); CALCIUM, SERUM 8.5 MG/DL (8.5-10.4); CHLORIDE, SERUM 100 MMOL/L (96-112); CO2 (CARBON DIOXIDE) 27 MMOL/L (24-34); POTASSIUM, SERUM 3.7 MMOL/L (3.5-5.3); SODIUM, SERUM 139 MMOL/L (135-148)
[2016-07-11 05:42] LABS: CREATININE 1.74 MG/DL (0.55-1.02); GFR AFRICAN AMERICAN 38 ML/MIN (>=60); GFR NON AFRICAN AMERICAN 33 ML/MIN (>=60); GLUCOSE, SERUM 192 MG/DL (60-99)
[2016-07-11 05:49] LABS: MANUAL DIFF NO %
[2016-07-11 10:47] LABS: BUN (BLOOD UREA NITROGEN) 20 MG/DL (6-23); CALCIUM, SERUM 8.4 MG/DL (8.5-10.4); CHLORIDE, SERUM 99 MMOL/L (96-112); CO2 (CARBON DIOXIDE) 24 MMOL/L (24-34); CREATININE 2.11 MG/DL (0.55-1.02); GFR AFRICAN AMERICAN 30 ML/MIN (>=60); GFR NON AFRICAN AMERICAN 26 ML/MIN (>=60); GLUCOSE, SERUM 324 MG/DL (60-99); POTASSIUM, SERUM 4.1 MMOL/L (3.5-5.3); SODIUM, SERUM 134 MMOL/L (135-148)
[2016-07-11 17:41] LABS: ASCORBIC ACID (UR NOT ORDER) NEG (NEG); BILIRUBIN, URINE NEGATIVE (NEG); KETONE, URINE TRACE MG/DL (NEG); LEUKOCYTE ESTERASE(NOT OR NEG (NEG); WBC (NOT ORDERED) (RFLEX) 2 (0-5)
[2016-07-12 06:01] LABS: BASOPHILS 0.5 %; BASOPHILS ABSOLUTE 0.07 10/3/uL (0.0-0.16); EOSINOPHILS 6.2 %; EOSINOPHILS ABSOLUTE 0.85 10/3/uL (0.0-0.53); HEMATOCRIT 33.8 % (36.0-48.0); HEMOGLOBIN 10.7 g/dL (12.0-16.0); IMMATURE GRANULOCYTES 0.6 %; IMMATURE GRANULOCYTES ABSOLUTE 0.08 10/3/uL (0.0-0.11); LYMPHOCYTES 18.6 %; LYMPHOCYTES ABSOLUTE 2.53 10/3/uL (0.67-4.30); MEAN CORPUS HGB CONC 31.7 g/dL (32.0-36.0); MEAN CORPUSCULAR HEMOGLOB 25.2 pg (26.0-34.0); MEAN CORPUSCULAR VOLUME 79.5 fL (80-100); MEAN PLATELET VOLUME 10.5 fL (9.2-13.0); MONOCYTES ABSOLUTE 1.77 10/3/uL (0.21-1.20); NEUTROPHILS 61.1 %; NEUTROPHILS ABSOLUTE 8.33 10/3/uL (2.02-8.40); PLATELET COUNT 269 10/3/uL (150-400); RBC DISTRIBUTION WIDTH 16.1 % (12.0-16.0); RED CELL COUNT 4.25 10/6/uL (4.0-5.6); WHITE BLOOD CELLS 13.6 10/3/uL (4.5-10.5)
[2016-07-12 06:02] LABS: MANUAL DIFF NO %
[2016-07-12 06:27] LABS: BUN (BLOOD UREA NITROGEN) 25 MG/DL (6-23); CALCIUM, SERUM 7.2 MG/DL (8.5-10.4); CHLORIDE, SERUM 107 MMOL/L (96-112); CO2 (CARBON DIOXIDE) 23 MMOL/L (24-34); CREATININE 3.49 MG/DL (0.55-1.02); GFR AFRICAN AMERICAN 17 ML/MIN (>=60); GFR NON AFRICAN AMERICAN 14 ML/MIN (>=60); GLUCOSE, SERUM 128 MG/DL (60-99); PHOSPHORUS, SERUM 3.6 MG/DL (2.5-4.5); POTASSIUM, SERUM 3.9 MMOL/L (3.5-5.3); SODIUM, SERUM 141 MMOL/L (135-148)
[2016-07-13 05:08] LABS: BASOPHILS 0.4 %; BASOPHILS ABSOLUTE 0.05 10/3/uL (0.0-0.16); EOSINOPHILS 6.4 %; HEMATOCRIT 33.2 % (36.0-48.0); HEMOGLOBIN 10.6 g/dL (12.0-16.0); IMMATURE GRANULOCYTES 0.8 %; IMMATURE GRANULOCYTES ABSOLUTE 0.11 10/3/uL (0.0-0.11); LYMPHOCYTES 21.1 %; LYMPHOCYTES ABSOLUTE 2.99 10/3/uL (0.67-4.30); MEAN CORPUS HGB CONC 31.9 g/dL (32.0-36.0); MEAN CORPUSCULAR HEMOGLOB 25.4 pg (26.0-34.0); MEAN CORPUSCULAR VOLUME 79.6 fL (80-100); MEAN PLATELET VOLUME 9.7 fL (9.2-13.0); MONOCYTES ABSOLUTE 1.28 10/3/uL (0.21-1.20); NEUTROPHILS 62.3 %; NEUTROPHILS ABSOLUTE 8.83 10/3/uL (2.02-8.40); PLATELET COUNT 275 10/3/uL (150-400); RBC DISTRIBUTION WIDTH 16.5 % (12.0-16.0); RED CELL COUNT 4.17 10/6/uL (4.0-5.6); WHITE BLOOD CELLS 14.2 10/3/uL (4.5-10.5)
[2016-07-13 05:22] LABS: MANUAL DIFF NO %
[2016-07-13 05:25] LABS: BUN (BLOOD UREA NITROGEN) 27 MG/DL (6-23); CHLORIDE, SERUM 109 MMOL/L (96-112); CO2 (CARBON DIOXIDE) 23 MMOL/L (24-34); GLUCOSE, SERUM 115 MG/DL (60-99); PHOSPHORUS, SERUM 4.3 MG/DL (2.5-4.5); POTASSIUM, SERUM 4.3 MMOL/L (3.5-5.3); SODIUM, SERUM 142 MMOL/L (135-148)
[2016-07-13 05:27] LABS: ALBUMIN 2.1 G/DL (3.5-5.0); CREATININE 4.31 MG/DL (0.55-1.02); GFR AFRICAN AMERICAN 13 ML/MIN (>=60); GFR NON AFRICAN AMERICAN 11 ML/MIN (>=60)
[2016-07-14 04:47] LABS: BUN (BLOOD UREA NITROGEN) 26 MG/DL (6-23); CALCIUM, SERUM 8.2 MG/DL (8.5-10.4); CHLORIDE, SERUM 112 MMOL/L (96-112); CO2 (CARBON DIOXIDE) 19 MMOL/L (24-34); GLUCOSE, SERUM 101 MG/DL (60-99); SODIUM, SERUM 142 MMOL/L (135-148)
[2016-07-14 04:50] LABS: CREATININE 4.89 MG/DL (0.55-1.02); GFR AFRICAN AMERICAN 11 ML/MIN (>=60); GFR NON AFRICAN AMERICAN 9 ML/MIN (>=60); PHOSPHORUS, SERUM 5.8 MG/DL (2.5-4.5); POTASSIUM, SERUM 5.5 MMOL/L (3.5-5.3)
[2016-07-14 06:56] LABS: BASOPHILS 0.4 %; BASOPHILS ABSOLUTE 0.07 10/3/uL (0.0-0.16); EOSINOPHILS 5.4 %; EOSINOPHILS ABSOLUTE 0.84 10/3/uL (0.0-0.53); IMMATURE GRANULOCYTES 0.8 %; IMMATURE GRANULOCYTES ABSOLUTE 0.12 10/3/uL (0.0-0.11); LYMPHOCYTES 21.3 %; LYMPHOCYTES ABSOLUTE 3.34 10/3/uL (0.67-4.30); MEAN CORPUS HGB CONC 32.4 g/dL (32.0-36.0); MEAN CORPUSCULAR HEMOGLOB 25.8 pg (26.0-34.0); MEAN CORPUSCULAR VOLUME 79.8 fL (80-100); MEAN PLATELET VOLUME 10.1 fL (9.2-13.0); MONOCYTES 8.2 %; MONOCYTES ABSOLUTE 1.28 10/3/uL (0.21-1.20); NEUTROPHILS 63.9 %; NEUTROPHILS ABSOLUTE 10.05 10/3/uL (2.02-8.40); PLATELET COUNT 333 10/3/uL (150-400); RBC DISTRIBUTION WIDTH 16.6 % (12.0-16.0); RED CELL COUNT 4.26 10/6/uL (4.0-5.6); WHITE BLOOD CELLS 15.7 10/3/uL (4.5-10.5)
[2016-07-14 06:58] LABS: MANUAL DIFF NO %
[2016-07-14 14:03] LABS: ALBUMIN 2.2 G/DL (3.5-5.0); BUN (BLOOD UREA NITROGEN) 27 MG/DL (6-23); CALCIUM, SERUM 7.9 MG/DL (8.5-10.4); CHLORIDE, SERUM 110 MMOL/L (96-112); CREATININE 4.77 MG/DL (0.55-1.02); GFR AFRICAN AMERICAN 11 ML/MIN (>=60); GFR NON AFRICAN AMERICAN 10 ML/MIN (>=60); PHOSPHORUS, SERUM 5.1 MG/DL (2.5-4.5); POTASSIUM, SERUM 4.7 MMOL/L (3.5-5.3); SODIUM, SERUM 144 MMOL/L (135-148)
[2016-07-14 14:04] LABS: CO2 (CARBON DIOXIDE) 25 MMOL/L (24-34); GLUCOSE, SERUM 70 MG/DL (60-99)
[2016-07-15 05:57] LABS: BASOPHILS 0.5 %; BASOPHILS ABSOLUTE 0.08 10/3/uL (0.0-0.16); EOSINOPHILS 4.7 %; EOSINOPHILS ABSOLUTE 0.74 10/3/uL (0.0-0.53); HEMATOCRIT 33.4 % (36.0-48.0); HEMOGLOBIN 10.9 g/dL (12.0-16.0); IMMATURE GRANULOCYTES 0.8 %; IMMATURE GRANULOCYTES ABSOLUTE 0.13 10/3/uL (0.0-0.11); LYMPHOCYTES 18.8 %; LYMPHOCYTES ABSOLUTE 2.97 10/3/uL (0.67-4.30); MEAN CORPUS HGB CONC 32.6 g/dL (32.0-36.0); MEAN CORPUSCULAR VOLUME 79.5 fL (80-100); MEAN PLATELET VOLUME 9.8 fL (9.2-13.0); MONOCYTES 7.6 %; NEUTROPHILS 67.6 %; NEUTROPHILS ABSOLUTE 10.68 10/3/uL (2.02-8.40); PLATELET COUNT 325 10/3/uL (150-400); RBC DISTRIBUTION WIDTH 16.8 % (12.0-16.0); WHITE BLOOD CELLS 15.8 10/3/uL (4.5-10.5)
[2016-07-15 06:05] LABS: MANUAL DIFF NO %
[2016-07-15 06:25] LABS: BUN (BLOOD UREA NITROGEN) 28 MG/DL (6-23); CALCIUM, SERUM 8.3 MG/DL (8.5-10.4); CHLORIDE, SERUM 109 MMOL/L (96-112); CO2 (CARBON DIOXIDE) 21 MMOL/L (24-34); CREATININE 4.94 MG/DL (0.55-1.02); GFR AFRICAN AMERICAN 11 ML/MIN (>=60); GFR NON AFRICAN AMERICAN 9 ML/MIN (>=60); POTASSIUM, SERUM 4.6 MMOL/L (3.5-5.3); SODIUM, SERUM 142 MMOL/L (135-148)
[2016-07-15 06:28] LABS: GLUCOSE, SERUM 134 MG/DL (60-99)
[2016-07-16 06:57] LABS: HEMATOCRIT 35.9 % (36.0-48.0); HEMOGLOBIN 11.5 g/dL (12.0-16.0); MEAN CORPUSCULAR HEMOGLOB 25.7 pg (26.0-34.0); MEAN CORPUSCULAR VOLUME 80.1 fL (80-100); MEAN PLATELET VOLUME 9.5 fL (9.2-13.0); PLATELET COUNT 307 10/3/uL (150-400); RED CELL COUNT 4.48 10/6/uL (4.0-5.6); WHITE BLOOD CELLS 17.8 10/3/uL (4.5-10.5)
[2016-07-16 07:06] LABS: ALBUMIN 2.3 G/DL (3.5-5.0); BUN (BLOOD UREA NITROGEN) 29 MG/DL (6-23); CALCIUM, SERUM 8.4 MG/DL (8.5-10.4); CHLORIDE, SERUM 101 MMOL/L (96-112); CO2 (CARBON DIOXIDE) 24 MMOL/L (24-34); PHOSPHORUS, SERUM 5.4 MG/DL (2.5-4.5); POTASSIUM, SERUM 4.2 MMOL/L (3.5-5.3); SODIUM, SERUM 139 MMOL/L (135-148)
[2016-07-16 07:12] LABS: CREATININE 4.37 MG/DL (0.55-1.02); GFR AFRICAN AMERICAN 13 ML/MIN (>=60); GFR NON AFRICAN AMERICAN 11 ML/MIN (>=60); GLUCOSE, SERUM 212 MG/DL (60-99)
[2016-07-16 07:16] LABS: MANUAL DIFF YES %
[2016-07-16 08:42] LABS: ANISOCYTOSIS 1+ (5-10/OIF) (0-5/OIF); EOSINOPHILS 6 %; EOSINOPHILS ABSOLUTE (CALC) 1.07 10/3/uL (0.0-0.53); LYMPHOCYTES 18 %; MONOCYTES 12 %; MONOCYTES ABSOLUTE (CALC) 2.14 10/3/uL (0.21-1.20); NEUTROPHILS ABSOLUTE (CALC) 11.39 10/3/uL (2.02-8.40); PLATELET ESTIMATE ADQ (ADEQUATE); SEGMENTED NEUTROPHIL (0) 64 %; TOTAL NUCLEATED CELLS 100
[2016-07-17 06:22] LABS: BASOPHILS 0.3 %; BASOPHILS ABSOLUTE 0.04 10/3/uL (0.0-0.16); EOSINOPHILS 3.5 %; EOSINOPHILS ABSOLUTE 0.51 10/3/uL (0.0-0.53); HEMATOCRIT 32.9 % (36.0-48.0); HEMOGLOBIN 10.7 g/dL (12.0-16.0); IMMATURE GRANULOCYTES 0.6 %; IMMATURE GRANULOCYTES ABSOLUTE 0.09 10/3/uL (0.0-0.11); LYMPHOCYTES 27.8 %; LYMPHOCYTES ABSOLUTE 4.09 10/3/uL (0.67-4.30); MANUAL DIFF NO %; MEAN CORPUS HGB CONC 32.5 g/dL (32.0-36.0); MEAN CORPUSCULAR HEMOGLOB 25.5 pg (26.0-34.0); MEAN CORPUSCULAR VOLUME 78.3 fL (80-100); MEAN PLATELET VOLUME 9.8 fL (9.2-13.0); MONOCYTES 7.5 %; NEUTROPHILS 60.3 %; PLATELET COUNT 329 10/3/uL (150-400); WHITE BLOOD CELLS 14.7 10/3/uL (4.5-10.5)
[2016-07-17 06:28] LABS: ALBUMIN 2.2 G/DL (3.5-5.0); BUN (BLOOD UREA NITROGEN) 33 MG/DL (6-23); CHLORIDE, SERUM 102 MMOL/L (96-112); CO2 (CARBON DIOXIDE) 29 MMOL/L (24-34); CREATININE 3.62 MG/DL (0.55-1.02); GFR AFRICAN AMERICAN 16 ML/MIN (>=60); GFR NON AFRICAN AMERICAN 14 ML/MIN (>=60); GLUCOSE, SERUM 273 MG/DL (60-99); PHOSPHORUS, SERUM 5.2 MG/DL (2.5-4.5); POTASSIUM, SERUM 4.1 MMOL/L (3.5-5.3); SODIUM, SERUM 140 MMOL/L (135-148)
[2016-07-18 06:20] LABS: HEMATOCRIT 34.1 % (36.0-48.0); MEAN CORPUS HGB CONC 32.3 g/dL (32.0-36.0); MEAN CORPUSCULAR HEMOGLOB 25.5 pg (26.0-34.0); MEAN CORPUSCULAR VOLUME 78.9 fL (80-100); MEAN PLATELET VOLUME 9.8 fL (9.2-13.0); PLATELET COUNT 340 10/3/uL (150-400); RBC DISTRIBUTION WIDTH 17.1 % (12.0-16.0); RED CELL COUNT 4.32 10/6/uL (4.0-5.6)
[2016-07-18 06:29] LABS: MANUAL DIFF YES %
[2016-07-18 06:37] LABS: ALBUMIN 2.4 G/DL (3.5-5.0); BUN (BLOOD UREA NITROGEN) 33 MG/DL (6-23); CALCIUM, SERUM 8.3 MG/DL (8.5-10.4); CHLORIDE, SERUM 97 MMOL/L (96-112); CO2 (CARBON DIOXIDE) 32 MMOL/L (24-34); POTASSIUM, SERUM 3.8 MMOL/L (3.5-5.3); SODIUM, SERUM 138 MMOL/L (135-148)
[2016-07-18 06:38] LABS: CREATININE 2.92 MG/DL (0.55-1.02); GFR AFRICAN AMERICAN 21 ML/MIN (>=60); GFR NON AFRICAN AMERICAN 18 ML/MIN (>=60); GLUCOSE, SERUM 214 MG/DL (60-99); PHOSPHORUS, SERUM 6.2 MG/DL (2.5-4.5)
[2016-07-18 08:12] LABS: ANISOCYTOSIS 1+ (5-10/OIF) (0-5/OIF); EOSINOPHILS 7 %; EOSINOPHILS ABSOLUTE (CALC) 1.05 10/3/uL (0.0-0.53); LYMPHOCYTES 24 %; MONOCYTES 11 %; MONOCYTES ABSOLUTE (CALC) 1.65 10/3/uL (0.21-1.20); PLATELET ESTIMATE ADQ (ADEQUATE); SEGMENTED NEUTROPHIL (0) 58 %; TOTAL NUCLEATED CELLS 100
[2016-07-19 07:02] LABS: BASOPHILS 0.5 %; BASOPHILS ABSOLUTE 0.08 10/3/uL (0.0-0.16); EOSINOPHILS ABSOLUTE 0.59 10/3/uL (0.0-0.53); HEMATOCRIT 35.6 % (36.0-48.0); HEMOGLOBIN 11.5 g/dL (12.0-16.0); IMMATURE GRANULOCYTES 0.9 %; IMMATURE GRANULOCYTES ABSOLUTE 0.13 10/3/uL (0.0-0.11); LYMPHOCYTES 29.9 %; MEAN CORPUS HGB CONC 32.3 g/dL (32.0-36.0); MEAN CORPUSCULAR HEMOGLOB 25.9 pg (26.0-34.0); MEAN CORPUSCULAR VOLUME 80.2 fL (80-100); MEAN PLATELET VOLUME 9.6 fL (9.2-13.0); MONOCYTES 7.8 %; MONOCYTES ABSOLUTE 1.15 10/3/uL (0.21-1.20); NEUTROPHILS 56.9 %; NEUTROPHILS ABSOLUTE 8.36 10/3/uL (2.02-8.40); PLATELET COUNT 320 10/3/uL (150-400); RED CELL COUNT 4.44 10/6/uL (4.0-5.6); WHITE BLOOD CELLS 14.7 10/3/uL (4.5-10.5)
[2016-07-19 07:06] LABS: MANUAL DIFF NO %
[2016-07-19 07:10] LABS: ALBUMIN 2.5 G/DL (3.5-5.0); CALCIUM, SERUM 8.8 MG/DL (8.5-10.4); CHLORIDE, SERUM 98 MMOL/L (96-112); CO2 (CARBON DIOXIDE) 31 MMOL/L (24-34); CREATININE 2.54 MG/DL (0.55-1.02); GFR AFRICAN AMERICAN 24 ML/MIN (>=60); GFR NON AFRICAN AMERICAN 21 ML/MIN (>=60); PHOSPHORUS, SERUM 5.7 MG/DL (2.5-4.5); SODIUM, SERUM 138 MMOL/L (135-148)
[2016-07-19 07:11] LABS: BUN (BLOOD UREA NITROGEN) 37 MG/DL (6-23); GLUCOSE, SERUM 328 MG/DL (60-99); POTASSIUM, SERUM 4.7 MMOL/L (3.5-5.3)
[2016-07-20 09:56] LABS: BASOPHILS 0.6 %; BASOPHILS ABSOLUTE 0.08 10/3/uL (0.0-0.16); EOSINOPHILS 4.8 %; HEMATOCRIT 36.4 % (36.0-48.0); HEMOGLOBIN 11.9 g/dL (12.0-16.0); IMMATURE GRANULOCYTES 0.6 %; IMMATURE GRANULOCYTES ABSOLUTE 0.09 10/3/uL (0.0-0.11); LYMPHOCYTES ABSOLUTE 4.66 10/3/uL (0.67-4.30); MEAN CORPUS HGB CONC 32.7 g/dL (32.0-36.0); MEAN CORPUSCULAR VOLUME 79.5 fL (80-100); MEAN PLATELET VOLUME 10.2 fL (9.2-13.0); MONOCYTES 7.7 %; MONOCYTES ABSOLUTE 1.12 10/3/uL (0.21-1.20); NEUTROPHILS 54.3 %; NEUTROPHILS ABSOLUTE 7.89 10/3/uL (2.02-8.40); PLATELET COUNT 358 10/3/uL (150-400); RBC DISTRIBUTION WIDTH 17.2 % (12.0-16.0); RED CELL COUNT 4.58 10/6/uL (4.0-5.6); WHITE BLOOD CELLS 14.5 10/3/uL (4.5-10.5)
[2016-07-20 09:57] LABS: MANUAL DIFF NO %
[2016-07-20 09:59] LABS: ALBUMIN 2.7 G/DL (3.5-5.0); BUN (BLOOD UREA NITROGEN) 34 MG/DL (6-23); CALCIUM, SERUM 8.6 MG/DL (8.5-10.4); CHLORIDE, SERUM 98 MMOL/L (96-112); CO2 (CARBON DIOXIDE) 31 MMOL/L (24-34); CREATININE 2.33 MG/DL (0.55-1.02); GFR AFRICAN AMERICAN 27 ML/MIN (>=60); GFR NON AFRICAN AMERICAN 23 ML/MIN (>=60); GLUCOSE, SERUM 304 MG/DL (60-99); PHOSPHORUS, SERUM 4.8 MG/DL (2.5-4.5); POTASSIUM, SERUM 4.2 MMOL/L (3.5-5.3); SODIUM, SERUM 137 MMOL/L (135-148)
[2016-07-21 10:01] LABS: ALBUMIN 2.5 G/DL (3.5-5.0); CALCIUM, SERUM 8.2 MG/DL (8.5-10.4); CHLORIDE, SERUM 100 MMOL/L (96-112); CO2 (CARBON DIOXIDE) 30 MMOL/L (24-34); CREATININE 2.07 MG/DL (0.55-1.02); GFR AFRICAN AMERICAN 31 ML/MIN (>=60); GFR NON AFRICAN AMERICAN 27 ML/MIN (>=60); GLUCOSE, SERUM 286 MG/DL (60-99); PHOSPHORUS, SERUM 4.3 MG/DL (2.5-4.5); POTASSIUM, SERUM 3.9 MMOL/L (3.5-5.3); SODIUM, SERUM 137 MMOL/L (135-148)
[2016-07-21 10:02] LABS: BUN (BLOOD UREA NITROGEN) 40 MG/DL (6-23)
[2016-07-22 07:25] LABS: ALBUMIN 2.7 G/DL (3.5-5.0); CALCIUM, SERUM 8.2 MG/DL (8.5-10.4); CHLORIDE, SERUM 101 MMOL/L (96-112); CO2 (CARBON DIOXIDE) 29 MMOL/L (24-34); CPK 32 U/L (0-200); CREATININE 1.85 MG/DL (0.55-1.02); GFR AFRICAN AMERICAN 36 ML/MIN (>=60); GFR NON AFRICAN AMERICAN 31 ML/MIN (>=60); GLUCOSE, SERUM 283 MG/DL (60-99); PHOSPHORUS, SERUM 3.4 MG/DL (2.5-4.5); POTASSIUM, SERUM 4.2 MMOL/L (3.5-5.3); SODIUM, SERUM 136 MMOL/L (135-148)
[2016-07-22 07:26] LABS: BUN (BLOOD UREA NITROGEN) 36 MG/DL (6-23)
[2016-07-23 05:02] LABS: ALBUMIN 2.7 G/DL (3.5-5.0); BUN (BLOOD UREA NITROGEN) 37 MG/DL (6-23); CALCIUM, SERUM 8.1 MG/DL (8.5-10.4); CHLORIDE, SERUM 103 MMOL/L (96-112); CO2 (CARBON DIOXIDE) 28 MMOL/L (24-34); GFR AFRICAN AMERICAN 42 ML/MIN (>=60); GFR NON AFRICAN AMERICAN 37 ML/MIN (>=60); GLUCOSE, SERUM 134 MG/DL (60-99); PHOSPHORUS, SERUM 3.9 MG/DL (2.5-4.5); POTASSIUM, SERUM 4.1 MMOL/L (3.5-5.3); SODIUM, SERUM 141 MMOL/L (135-148)
[2016-07-24 08:05] LABS: ALBUMIN 2.5 G/DL (3.5-5.0); CHLORIDE, SERUM 103 MMOL/L (96-112); CO2 (CARBON DIOXIDE) 29 MMOL/L (24-34); CREATININE 1.39 MG/DL (0.55-1.02); GFR AFRICAN AMERICAN 50 ML/MIN (>=60); GFR NON AFRICAN AMERICAN 43 ML/MIN (>=60); PHOSPHORUS, SERUM 3.7 MG/DL (2.5-4.5); SODIUM, SERUM 137 MMOL/L (135-148)
[2016-07-24 08:08] LABS: BUN (BLOOD UREA NITROGEN) 30 MG/DL (6-23); CALCIUM, SERUM 9.2 MG/DL (8.5-10.4); GLUCOSE, SERUM 165 MG/DL (60-99); POTASSIUM, SERUM 4.8 MMOL/L (3.5-5.3)
[2016-07-25 05:08] LABS: ALBUMIN 2.7 G/DL (3.5-5.0); BUN (BLOOD UREA NITROGEN) 33 MG/DL (6-23); CHLORIDE, SERUM 101 MMOL/L (96-112); CO2 (CARBON DIOXIDE) 28 MMOL/L (24-34); CREATININE 1.34 MG/DL (0.55-1.02); GFR AFRICAN AMERICAN 53 ML/MIN (>=60); GFR NON AFRICAN AMERICAN 45 ML/MIN (>=60); PHOSPHORUS, SERUM 3.8 MG/DL (2.5-4.5); SODIUM, SERUM 138 MMOL/L (135-148)
[2016-07-25 05:14] LABS: CALCIUM, SERUM 8.1 MG/DL (8.5-10.4); GLUCOSE, SERUM 237 MG/DL (60-99); POTASSIUM, SERUM 3.7 MMOL/L (3.5-5.3)
[2016-07-26 07:15] LABS: BUN (BLOOD UREA NITROGEN) 23 MG/DL (6-23); CALCIUM, SERUM 8.8 MG/DL (8.5-10.4); CHLORIDE, SERUM 104 MMOL/L (96-112); CO2 (CARBON DIOXIDE) 30 MMOL/L (24-34); CREATININE 1.14 MG/DL (0.55-1.02); GFR AFRICAN AMERICAN 64 ML/MIN (>=60); GFR NON AFRICAN AMERICAN 55 ML/MIN (>=60); GLUCOSE, SERUM 108 MG/DL (60-99); SODIUM, SERUM 140 MMOL/L (135-148)
[2016-07-28 07:34] LABS: BASOPHILS 0.7 %; BASOPHILS ABSOLUTE 0.09 10/3/uL (0.0-0.16); EOSINOPHILS 4.2 %; EOSINOPHILS ABSOLUTE 0.51 10/3/uL (0.0-0.53); HEMATOCRIT 35.2 % (36.0-48.0); HEMOGLOBIN 11.4 g/dL (12.0-16.0); IMMATURE GRANULOCYTES 0.5 %; IMMATURE GRANULOCYTES ABSOLUTE 0.06 10/3/uL (0.0-0.11); LYMPHOCYTES ABSOLUTE 3.16 10/3/uL (0.67-4.30); MEAN CORPUS HGB CONC 32.4 g/dL (32.0-36.0); MEAN CORPUSCULAR HEMOGLOB 26.3 pg (26.0-34.0); MEAN CORPUSCULAR VOLUME 81.3 fL (80-100); MEAN PLATELET VOLUME 10.6 fL (9.2-13.0); MONOCYTES 9.5 %; MONOCYTES ABSOLUTE 1.15 10/3/uL (0.21-1.20); NEUTROPHILS 59.1 %; NEUTROPHILS ABSOLUTE 7.18 10/3/uL (2.02-8.40); PLATELET COUNT 270 10/3/uL (150-400); RBC DISTRIBUTION WIDTH 17.9 % (12.0-16.0); RED CELL COUNT 4.33 10/6/uL (4.0-5.6); WHITE BLOOD CELLS 12.2 10/3/uL (4.5-10.5)
[2016-07-28 07:36] LABS: MANUAL DIFF NO %
[2016-07-28 07:46] LABS: ALBUMIN 2.8 G/DL (3.5-5.0); BUN (BLOOD UREA NITROGEN) 22 MG/DL (6-23); CALCIUM, SERUM 8.7 MG/DL (8.5-10.4); CHLORIDE, SERUM 102 MMOL/L (96-112); CO2 (CARBON DIOXIDE) 29 MMOL/L (24-34); CREATININE 1.18 MG/DL (0.55-1.02); GFR AFRICAN AMERICAN 61 ML/MIN (>=60); GFR NON AFRICAN AMERICAN 53 ML/MIN (>=60); GLUCOSE, SERUM 248 MG/DL (60-99); POTASSIUM, SERUM 4.1 MMOL/L (3.5-5.3); SODIUM, SERUM 138 MMOL/L (135-148)
[2016-07-28] MEDS ORDERED: PCET PO (10:02)
[2016-07-28] MEDS ORDERED: NORV5 PO (10:02)
[2016-07-28] MEDS ORDERED: COREG6 PO (10:02)
== END 2016-07-28 14:12 | disposition home health service (06) | DRG 853 ==
LOC: 4SO 11:34
PROVIDERS: Hospitalist; Internal Medicine; Internal Medicine Nephrology; Nurse Practitioner; Registered Nurse; Surgery
PROC: 047M3ZZ Dilation of Right Popliteal Artery, Percutaneous Approach (ICD-10-PCS; principal; 2016-07-25 12:45)
PROC: 047K3ZZ Dilation of Right Femoral Artery, Percutaneous Approach (ICD-10-PCS; principal; 2016-07-25 12:45)
PROC: B44LZZ3 Ultrasonography of Femoral Artery, Intravascular (ICD-10-PCS; principal; 2016-07-25 12:45)
PROC: B41D1ZZ Fluoroscopy of Aorta and Bilateral Lower Extremity Arteries using Low Osmolar Contrast (ICD-10-PCS; principal; 2016-07-25 12:45)
DX: A41.02 Sepsis due to Methicillin resistant Staphylococcus aureus (principal); N17.0 Acute kidney failure with tubular necrosis; E11.52 Type 2 diabetes mellitus with diabetic peripheral angiopathy with gangrene; L03.115 Cellulitis of right lower limb; E11.621 Type 2 diabetes mellitus with foot ulcer; E11.65 Type 2 diabetes mellitus with hyperglycemia; E11.42 Type 2 diabetes mellitus with diabetic polyneuropathy; T36.0X5A Adverse effect of penicillins, initial encounter; E78.5 Hyperlipidemia, unspecified; F17.200 Nicotine dependence, unspecified, uncomplicated; M79.7 Fibromyalgia; G89.4 Chronic pain syndrome; M06.9 Rheumatoid arthritis, unspecified; Z88.8 Allergy status to other drugs, medicaments and biological substances; E11.22 Type 2 diabetes mellitus with diabetic chronic kidney disease; N18.9 Chronic kidney disease, unspecified; I12.9 Hypertensive chronic kidney disease with stage 1 through stage 4 chronic kidney disease, or unspecified chronic kidney disease; R65.20 Severe sepsis without septic shock; Z85.820 Personal history of malignant melanoma of skin; Z79.4 Long term (current) use of insulin
CPT/HCPCS: 37224; 75625; 75710; 76775; 80048; 80053; 80069; 80202; 81001; 82550; 82570; 82962; 83735; 84100; 84145; 84300; 85025; 85610; 85730; 87040; 89190; 93005; 93975; A9270-GY; C1725; C1760; C1769; C1894; J0360; J0878; J1170; J2250; J2405; J2543; J3010; J3370; Q9966